=== PATIENT | male | born 1970 | race Two or more races ===

== ENCOUNTER 2023-08-07 15:07 | Emergency (ER) | payer SELFPAY ==
[~2023-08-07] VITALS: Ht 172.7 cm; Wt 71.7 kg
[2023-08-07 15:53] LABS: BASOPHILS # (AUTO) 0.1 K/UL (0.0-0.2); BASOPHILS % (AUTO) 0.9 % (0.0-2.0); EOSINOPHILS % (AUTO) 0.1 % (0.0-7.0); HEMATOCRIT 44.9 % (36.7-47.1); HEMOGLOBIN 15.4 g/dL (12.5-16.3); LYMPHOCYTES # (AUTO) 0.6 K/uL (0.8-4.8); LYMPHOCYTES % (AUTO) 6.4 % (20.5-51.5); MEAN CORPUSCULAR HEMOGLOBIN 30.7 uug (23.8-33.4); MEAN CORPUSCULAR HGB CONC 34 g/dL (32.5-36.3); MEAN CORPUSCULAR VOLUME 89.3 fL (73.0-96.2); MONOCYTES # (AUTO) 0.1 K/uL (0.1-1.30); MONOCYTES % (AUTO) 1.3 % (0.0-11.0); NEUTROPHILS # (AUTO) 8.9 K/uL (1.8-8.9); NEUTROPHILS % (AUTO) 91.3 % (38.5-71.5); PLATELET COUNT (AUTO) 226 K/uL (152-348); RED BLOOD CELL COUNT(AUTO) 5.03 MIL/uL (4.06-5.63); RED CELL DISTRIBUTION WIDTH 12.8 % (12.1-16.2); WHITE BLOOD COUNT (AUTO) 9.8 K/uL (3.6-10.2)
[2023-08-07] MEDS ORDERED: METOCLOPRAMIDE HCL 10 MG/2 ML VIAL ONE (15:59)
[2023-08-07] MEDS: METOCLOPRAMIDE HCL 10 MG/2 ML VIAL IV ONE (16:06)
[2023-08-07] MEDS: IV NORMAL SALINE 500 ML BAG IV ONE (16:06)
[2023-08-07 16:12] LABS: DIFFERENTIAL COMMENT 1
[2023-08-07 16:15] LABS: CALCIUM 8.6 mg/dL (8.5-10.1); CREATININE 0.8 mg/dL (0.6-1.3); POTASSIUM 3.8 mmol/L (3.5-5.1)
[2023-08-07] MEDS ORDERED: Metformin (16:30)
[2023-08-07] MEDS ORDERED: IV NORMAL SALINE 250 ML IV ONE (16:42)
[2023-08-07] MEDS ORDERED: SWABABLE VALVE TRANSFER SET EA MC ONE (16:42)
[2023-08-07] MEDS ORDERED: IOHEXOL 350 100 ML INFUS..BTL ONE (16:42)
[2023-08-07] MEDS ORDERED: KETOROLAC TROMETHAMINE 30 MG INJ ONE (17:41)
[2023-08-07] MEDS: KETOROLAC TROMETHAMINE 30 MG INJ IVP ONE (17:43)
[2023-08-07 17:49] VITALS: O2SAT 99
[2023-08-07] MEDS ORDERED: CYCL10TA9 PO (17:52)
[2023-08-07] MEDS ORDERED: NAPR-1164 PO (17:52)
[2023-08-07] MEDS ORDERED: METO-295 PO (17:52)
== END 2023-08-07 18:09 | disposition home or self-care (01) ==
LOC: ER 15:10
DX: R51.9 Headache, unspecified (principal); E11.65 Type 2 diabetes mellitus with hyperglycemia; Z79.899 Other long term (current) drug therapy; Z88.0 Allergy status to penicillin
CPT/HCPCS: 99285; 70496; 96374; 96361; 96375; 80048; 82962; 85025; 85730; 36415; 70498; 70450; J1885; J2765; Q9967; J7040; A4606; A4663